=== PATIENT | female | born 2000 | race Caucasian/White ===

== ENCOUNTER → 2023-03-21 | Outpatient (CLI) | payer SELFPAY ==
[2023-03-30 17:13] LABS: HPV Reflexed? NOT INDICATED
== END | disposition home or self-care (01) ==
PROVIDERS: PCP Nurse Practitioner Family; Visit Provider Nurse Practitioner Family
DX: Z12.4 Encounter for screening for malignant neoplasm of cervix (principal)
CPT/HCPCS: 88175; G0145

== ENCOUNTER → 2025-07-01 | Outpatient (CLI) | payer SELFPAY, OTHER ==
--- NOTE | 2025-07-01 13:54 | BI_ITS ---
EXAM: DIAG MAMM W/CAD, BILAT 07/01/2025 CLINICAL HISTORY: F, Age 24 y/o, left upper outer quadrant breast pain. TECHNIQUE: Procedure Code: [id number] Modality: MG Procedure: DIAG MAMM W/CAD, BILAT. COMPARISON: Baseline study. FINDINGS: TISSUE DENSITY: The breasts are extremely dense, which lowers the sensitivity of mammography. Bilateral Breast Mammographic Findings: No significant masses, calcifications or other abnormalities are identified. Fullness in the axillary region of the left breast. Correlation with ultrasound recommended. BI/DIAG MAMM W/CAD, BILAT IMPRESSION: Fullness in the axillary region of the left breast. Correlation with targeted ultrasound recommended. OVERALL FINAL ASSESSMENT BI-RADS 0: INCOMPLETE - NEED ADDITIONAL IMAGING EVALUATION. RECOMMENDATION: Ultrasound Recommended A letter with findings and recommendations will be mailed to the patient. [id number]
--- NOTE | 2025-07-01 13:54 | US_ITS ---
PROCEDURE: BREAST LIMITED UNILATERAL 07/01/2025 REASON FOR EXAM: F, Age 24 y/o , PAIN Left axillary breast pain. COMPARISON: Prior mammogram done earlier in the day.. TECHNIQUE: Procedure Code: [id number] Modality: US Procedure: BREAST LIMITED UNILATERAL. The upper-outer quadrant of the left breast was examined with ultrasound. FINDINGS: There is a 2 cm x 1.2 cm x 0.6 cm hypoechoic nodule with a central fatty hilum suggestive of a lymph node at the 2 o'clock position of the breast at 6 cm from the nipple. There is also evidence of 2 benign-appearing lymph nodes in the left axilla the larger measures 2.3 cm 1.3 cm x 0.6 cm. US/Breast Limited Unilateral IMPRESSION: Findings suggestive of a benign-appearing left axillary lymph node as well as a lymph node at the 2 o'clock position of the breast at 6 cm from the nipple. BI-RADS 2: BENIGN RECOMMENDATION: Routine annual follow-up in 1 Year Reading Location: [place] [id number]
== END | disposition home or self-care (01) ==
PROVIDERS: PCP Family Medicine
DX: N64.4 Mastodynia (principal)
CPT/HCPCS: 76642; 77062; 77066; G0279

== ENCOUNTER → 2025-10-04 | Outpatient (CLI) | payer OTHER, SELFPAY ==
--- OUTSIDE RECORDS SUMMARY | 2025-10-04 09:19 | XMS RPT_ITS | CCD ---
Author Organization [facility] Care Team Providers Care Restaurant Cook Name Role Phone Noe Lawrence NP Referring Unavailable Noe Lawrence NP Attending Unavailable Francisco Moreno Primary Care Unavailable Noe Guardado Attending Physician Noe Guardado Referring Provider Tiffanie DOE, Dr. Francisco Slaughter Primary Care Physician Medications Current Medications Medication Drug Class(es) Dates Sig (Normalized) Sig (Original) amoxicillin 875 mg / clavulanate 125 mg oral tablet (2 sources) Penicillin-class Antibacterial Start: 02-09-2021 End: 11-06-2021 Problems Problem Classification Problem Date Documented Da te Episodic/Chronic Nonmalignant breast conditions (1 source) Mastodynia; Translations: [Mastodynia] Onset: 07-16-2025 Episodic Otitis media and related conditions (1 source) Otitis media of bilateral ears; Translations: [Otitis media, unspecified, bilateral] 11-06-2021 Episodic Results Test Name Value Interpretation Reference Range Facil ity Breast Limited Unilateralon 07-01-2025 Breast Limited Unilateral [facility] Services [address], [place] [id number] Breast Limited Unilateral MR#: [id number] Acct: [id number] Name: NICOLE ROSE Rep #: [id number] : 2000 F 24 From: Felix salmon MD PCP: Dr. Francisco Moreno MD Status: REG CLI Study: Breast Limited Unilateral Date of Exam: Exam# [id number] Ordering Dr: Noe Lawrence NP ASSESSMENT NURSE -C PROCEDURE: BREAST LIMITED UNILATERAL 07/01/2025 REASON FOR EXAM: F, Age 24 y/o , PAIN Left axillary breast pain. COMPARISON: Prior mammogram done earlier in the day.. TECHNIQUE: Procedure Code: USBRSTLIMIT Modality: US Procedure: BREAST LIMITED UNILATERAL. The upper-outer quadrant of the left breast was examined with ultrasound. FINDINGS: There is a 2 cm x 1.2 cm x 0.6 cm hypoechoic nodule with a central fatty hilum suggestive of a lymph node at the 2 o'clock position of the breast at 6 cm from the nipple. There is also evidence of 2 benign-appearing lymph nodes in the left axilla the larger measures 2.3 cm 1.3 cm x 0.6 cm. US/Breast Limited Unilateral IMPRESSION: Findings suggestive of a benign-appearing left axillary lymph node as well as a lymph node at the 2 o'clock position of the breast at 6 cm from the nipple. BI-RADS 2: BENIGN RECOMMENDATION: Routine annual follow-up in 1 Year Reading Location: [place] [address] CC: Noe Lawrence; Dr. Francisco Moreno MD Psychiatric Cns: Signed Normal [facility] Breast imaging reportOrdered By: Felix Robbins on 07-01-2025 Study report [facility] Imaging Services [address] [place] [id number] DIAG MAMM W/CAD, BILAT MR#: [id number] Acct: [id number] Name: NICOLE ROSE Rep #: [id number] : 2000 F 24 From: Carlos Robbins MD PCP: Dr. Francisco Moreno MD Status: RE G I Study:DIAG MAMM W/CAD, BILAT Date of Exam: 07/01/25 Exam# [id number] Ordering Dr: Noe Lawrence NP EXAM: DIAG MAMM W/CAD, BILAT 07/01/2025 CLINICAL HISTORY: F, Age 24 y/o, left upper outer quadrant breast pain. TECHNIQUE: Procedure Code: BIDMWCADB Modality: MG Procedure: DIAG MAMM W/CAD, BILAT. COMPARISON: Baseline study. FINDINGS: TISSUE DENSITY: The breasts are extremely dense, which lowers the sensitivity ofmammography. Bilateral Breast Mammographic Findings: No significant masses, calcifications or other abnormalities are identified. Fullness in the axillary region of the left breast. Correlation with ultrasound recommended. BI/DIAG MAMM W/CAD, BILAT IMPRESSION: Fullness in the axillary region of the left breast. Correlation with targeted ultrasound recommended. OVERALL FINAL ASSESSMENT BI-RADS 0: INCOMPLETE - NEED ADDITIONAL IMAGING EVALUATION. RECOMMENDATION: Ultrasound Recommended A letter with findings and recommendations will be mailed to the patient. [id number] CC: Noe Lawrence; Dr. Francisco Moreno MD ~ Psychiatric Cns: Signed [facility] DIAG MAMM W/CAD, BILATon DIAG MAMM W/CAD, BILAT [facility] Imaging Services [address] [place], [place] [id number] DIAG MAMM W/CAD, BILAT MR#: [id number] Acct: [id number] Name: NICOLE ROSE Rep #: [id number] : 2000 F 24 From: Felix salmon MD PCP: Dr. Francisco Moreno MD Status: [facility] Study: DIAG MAMM W/CAD, BILAT Date of Exam: 07/01/25 Exam# [id number] Ordering Dr: Noe Lawrence NP ASSESSMENT NURSE -C EXAM: DIAG MAMM W/CAD, BILAT 07/01/2025 CLINICAL HISTORY: F, Age 24 y/o, left upper outer quadrant breast pain. TECHNIQUE: Procedure Code: BIDMWCADB Modality: MG Procedure: DIAG MAMM W/CAD, BILAT. COMPARISON: Baseline study. FINDINGS: TISSUE DENSITY: The breasts are extremely dense, which lowers the sensitivity of mammography. Bilateral Breast Mammographic Findings: No significant masses, calcifications or other abnormalities are identified. Fullness in the axillary region of the left breast. Correlation with ultrasound recommended. BI/DIAG MAMM W/CAD, BILAT IMPRESSION: Fullness in the axillary region of the left breast. Correlation with targeted ultrasound recommended. OVERALL FINAL ASSESSMENT BI-RADS 0: INCOMPLETE - NEED ADDITIONAL IMAGING EVALUATION. RECOMMENDATION: Ultrasound Recommended A letter with findings and recommendations will be mailed to the patient. [id number] CC: Noe INGRAM McMorrow; Dr. Francisco Moreno MD Psychiatric Cns: Signed Normal [facility] CNOVon 09-22-2019 CN Office Visit (UCWSTR ) NICOLE HERBERT ([id number]) 2000 F Date Time Provider Department 09/22/19 10:15 AM ALLYSON MARIA [facility] During your visit today, we recorded the following information about you: Temperature Pulse Respiration Blood pressure 98.8 degrees 91/minute 18/minute 106/70 Weight 49.2 kg Allyson Maria APRN.HAND SCUDDER 09/22/2019 10:47 AM Signed Subjective HPI Nicole Herbert is a 19 year old female who presents with BL ear pain and cold symptoms for the last 3 days. The ears are equally painful. Mild headache this morning. She had a fever 3 days ago at 100 F. Review of Systems Constitutional: Positive for fever (resolved) and malaise/fatigue. Negative for chills. HENT: Positive for congestion and ear pain. Negative for sinus pain and sore throat. Respiratory: Positive for cough. Negative for sputum production, shortness of breath and wheezing. Cardiovascular: Negative for chest pain. Neurological: Positive for headaches. Negative for dizziness. BP 106/70 Pulse 91 Temp 37.1 ?C (98.8 ?F) (Tympanic) Resp 18 Wt 49.2 kg (108 lb 6.4 oz) SpO2 98% PAST MEDICAL HISTORY Diagnosis Date - Headache(784.0) 01/05/2013 - Mononucleosis PAST SURGICAL HISTORY Procedure Laterality Date - NONE ALLERGIES Patient has no known allergies. MEDICATIONS No prescriptions on file. FAMILY HISTORY Problem Relation Age of Onset - None Mother - None Father Social History Tobacco Use - Smoking status: Passive Smoke Exposure - Never Smoker - Smokeless tobacco: Never Used - Tobacco comment: dad smokes outside only Substance Use Topics - Alcohol use: Not on file - Drug use: Not on file Objective Physical Exam Constitutional: She is oriented to person, place, and time and well-developed, well-nourished, and in no distress. HENT: Head: Normocephalic and atraumatic. Right Ear: Tympanic membrane is bulging. Tympanic membrane is not erythematous. A middle ear effusion is present. Left Ear: Tympanic membrane is bulging. Tympanic membrane is not erythematous. A middle ear effusion is present. Nose: Rhinorrhea present. No mucosal edema. Right sinus exhibits no maxillary sinus tenderness and no frontal sinus tenderness. Left sinus exhibits no maxillary sinus tenderness and no frontal sinus tenderness. Mouth/Throat: No posterior oropharyngeal edema or posterior oropharyngeal erythema. Eyes: Conjunctivae are normal. Cardiovascular: Normal rate, regular rhythm, normal heart sounds and intact distal pulses. Exam reveals no gallop and no friction rub. No murmur heard. Pulmonary/Chest: Effort normal and breath sounds normal. No respiratory distress. She has no wheezes. She has no rales. She exhibits no tenderness. Musculoskeletal: General: No edema. Lymphadenopathy: She has no cervical adenopathy. Neurological: She is alert and oriented to person, place, and time. Gait normal. Skin: Skin is warm and dry. She is not diaphoretic. ASSESSMENT/PLAN: 1. Viral URI - ICD9: 465.9, ICD10: J06.9 (primary diagnosis) - Discussed viral etiology and rationale for treatment. - Symptomatic treatment with prn analgesia - Supportive care with fluids and rest 2. Eustachian tube dysfunction, bilateral - ICD9: 381.81, ICD10: H69.83 - PREDNISONE 20 MG TABLET - LORATADINE 10 MG TABLET Patient understands if he/she develops any shortness of breath, chest pain, or persistent fever, they should be taken to the ER immediately or call 911. All of the above discussed with the patient in detail. Patient is in agreement with the above plan. Treatment and plan of care discussed including course of treatment, possible medication side effects, and what to watch for in regards to worsening signs and symptoms. All questions addressed. Allyson Maria APRN.TORSTEN Referring Provider: SELF [200] Allergies As of Date: 09/22/2019 (No Known Allergies) Date Reviewed: 09/22/2019 Reviewed by: Allyson Maria - Fully Assessed Reason for Visit: Ear Pain [817] Cmt: bilateral ear pain, and cold sx x 3 days Primary Visit Diagnosis:Viral URI [J06.9] Other Visit Diagnosis:Eustachian tube dysfunction, bilateral [H69.83] Order(s):predniSONE (DELTASONE) 20 mg tabletTake 2 tablets by mouth once daily for 5 days. Take daily with food.Disp: 10 tabletRfl: 0 loratadine (CLARITIN) 10 mg tabletTake 1 tablet by mouth once daily.Disp: 30 tabletRfl: 0 Prescriptions as of 09/22/2019 Sig: PREDNISONE 20 MG TABLET Take 2 tablets by mouth once * LORATADINE 10 MG TABLET Take 1 tablet by mouth once d* Problem List As Of Date 09/22/2019 Noted Resolved Headache [R51] 01/05/2013 Prescriptions ordered this encounter Disp Refills Start End PREDNISONE 20 MG TABLET 10 t* 0 09/22/2019 09/27/2019 Route: ORAL Sig: Take 2 tablets by mouth once daily for 5 days. Take daily with food. LORATADINE 10 MG TABLET 30 t* 0 09/22/2019 Route: ORAL Sig: Take 1 tablet by mouth once daily. Encounter Status:Closed by APARNA RIVERA.ALLYSON SARMIENTO on 09/22/19 [facility] PROGRESSon 09-22-2019 PROGRESS HNO ID: [id number] Author: Allyson Maria Service: ? Author Type: Nurse Practitioner Type: Progress Notes Filed: 09/22/2019 10:47 AM Note Text: Subjective HPI Nicole Herbert is a 19 year old female who presents with BL ear pain and cold symptoms for the last 3 days. The ears are equally painful. Mild headache this morning. She had a fever 3 days ago at 100 F. Review of Systems Constitutional: Positive for fever (resolved) and malaise/fatigue. Negative for chills. HENT: Positive for congestion and ear pain. Negative for sinus pain and sore throat. Respiratory: Positive for cough. Negative for sputum production, shortness of breath and wheezing. Cardiovascular: Negative for chest pain. Neurological: Positive for headaches. Negative for dizziness. BP 106/70 Pulse 91 Temp 37.1 ?C (98.8 ?F) (Tympanic) Resp 18 Wt 49.2 kg (108 lb 6.4 oz) SpO2 98% PAST MEDICAL HISTORY Diagnosis Date - Headache(784.0) 01/05/2013 - Mononucleosis PAST SURGICAL HISTORY Procedure Laterality Date - NONE ALLERGIES Patient has no known allergies. MEDICATIONS No prescriptions on file. FAMILY HISTORY Problem Relation Age of Onset - None Mother - None Father Social History Tobacco Use - Smoking status: Passive Smoke Exposure - Never Smoker - Smokeless tobacco: Never Used - Tobacco comment: dad smokes outside only Substance Use Topics - Alcohol use: Not on file - Drug use: Not on file Objective Physical Exam Constitutional: She is oriented to person, place, and time and well-developed, well-nourished, and in no distress. HENT: Head: Normocephalic and atraumatic. Right Ear: Tympanic membrane is bulging. Tympanic membrane is not erythematous. A middle ear effusion is present. Left Ear: Tympanic membrane is bulging. Tympanic membrane is not erythematous. A middle ear effusion is present. Nose: Rhinorrhea present. No mucosal edema. Right sinus exhibits no maxillary sinus tenderness and no frontal sinus tenderness. Left sinus exhibits no maxillary sinus tenderness and no frontal sinus tenderness. Mouth/Throat: No posterior oropharyngeal edema or posterior oropharyngeal erythema. Eyes: Conjunctivae are normal. Cardiovascular: Normal rate, regular rhythm, normal heart sounds and intact distal pulses. Exam reveals no gallop and no friction rub. No murmur heard. Pulmonary/Chest: Effort normal and breath sounds normal. No respiratory distress. She has no wheezes. She has no rales. She exhibits no tenderness. Musculoskeletal: General: No edema. Lymphadenopathy: She has no cervical adenopathy. Neurological: She is alert and oriented to person, place, and time. Gait normal. Skin: Skin is warm and dry. She is not diaphoretic. ASSESSMENT/PLAN: 1. Viral URI - ICD9: 465.9, ICD10: J06.9 (primary diagnosis) - Discussed viral etiology and rationale for treatment. - Symptomatic treatment with prn analgesia - Supportive care with fluids and rest 2. Eustachian tube dysfunction, bilateral - ICD9: 381.81, ICD10: H69.83 - PREDNISONE 20 MG TABLET - LORATADINE 10 MG TABLET Patient understands if he/she develops any shortness of breath, chest pain, or persistent fever, they should be taken to the ER immediately or call 911. All of the above discussed with the patient in detail. Patient is in agreement with the above plan. Treatment and plan of care discussed including course of treatment, possible medication side effects, and what to watch for in regards to worsening signs and symptoms. All questions addressed. Allyson Maria APRN.TORSTEN [facility] CNOVon 01-19-2019 CNOV Office Visit (UCWSTR ) NICOLE HERBERT ([id number]) 2000 F Date Time Provider Department 01/19/19 10:00 AM CONNIE VASQUEZ [facility] During your visit today, we recorded the following information about you: Temperature Pulse Respiration Blood pressure 98.3 degrees 78/minute 12/minute 100/58 Weight 52.5 kg Connie Vasquez APRN.TORSTEN 01/19/2019 12:01 PM Signed Subjective HPI Pt accompanied by mother. Pt presents with c/o dysuria and suprapubic pressure x 2 days. This am had mild bilateral low back pain. Has not taken any OTC medications. Does not think she is drinking enough water. Denies fever, chills, myalgias, vaginal discharge, urinary urgency/frequency. Review of Systems Constitutional: Negative for chills and fever. Gastrointestinal: Negative for abdominal pain, constipation, diarrhea, nausea and vomiting. Genitourinary: Positive for dysuria. Negative for flank pain, frequency, hematuria and urgency. Musculoskeletal: Negative for back pain and myalgias. Objective Physical Exam Constitutional: She is oriented to person, place, and time and well-developed, well-nourished, and in no distress. No distress. Abdominal: There is no CVA tenderness. Neurological: She is alert and oriented to person, place, and time. Skin: Skin is warm and dry. She is not diaphoretic. BP 100/58 Pulse 78 Temp 36.8 ?C (98.3 ?F) (Tympanic) Resp 12 Wt 52.5 kg (115 lb 12.8 oz) .Patient presents with: UTI: burning with urination,frequency and low back pain x 2 days PAST MEDICAL HISTORY Diagnosis Date - Headache(784.0) 01/05/2013 - Mononucleosis PAST SURGICAL HISTORY Procedure Laterality Date - NONE ALLERGIES Patient has no known allergies. MEDICATIONS phenazopyridine (PYRIDIUM) 100 mg tablet Take 1 tablet by mouth three times daily as needed for up to 2 days. FAMILY HISTORY Problem Relation Age of Onset - None Mother - None Father Social History Tobacco Use - Smoking status: Passive Smoke Exposure - Never Smoker - Smokeless tobacco: Never Used - Tobacco comment: dad smokes outside only Substance Use Topics - Alcohol use: Not on file - Drug use: Not on file ASSESSMENT/PLAN: 1. Dysuria - ICD9: 788.1, ICD10: R30.0 acute - UA WNL - Send urine for culture - Patient education for prevention given - UA DIP, URINE (POC) - URINE CULTURE - PHENAZOPYRIDINE 100 MG TABLET Encouraged to drink plenty of fluids. Will call with urine culture result and any further POC. The patient is instructed to return or seek emergency treatment if symptoms become worse or with any acute change in condition. The patient verbalizes understanding and is in agreement with plan of care. Connie Vasquez CNP Referring Provider: SELF [200] Allergies As of Date: 01/19/2019 (No Known Allergies) Date Reviewed: 01/19/2019 Reviewed by: Vera Pizarro Cylinder Press Feeder - Fully Assessed Reason for Visit: UTI [116] Cmt: burning with urination,frequency and low back pain x 2 days Primary Visit Diagnosis:Dysuria [R30.0] Order(s):UA DIP, URINE (POC) [2424016] Order #: [id number] #[id number] URINE CULTURE [SQURCUL] Order #: [id number] phenazopyridine (PYRIDIUM) 100 mg tabletTake 1 tablet by mouth three times daily as needed for up to 2 days.Disp: 6 tabletRfl: 0 Prescriptions as of 01/19/2019 Sig: PHENAZOPYRIDINE 100 MG TABLET Take 1 tablet by mouth three * Problem List As Of Date 01/19/2019 Noted Resolved Headache [R51] INVALID FOR* Prescriptions ordered this encounter Disp Refills Start End PHENAZOPYRIDINE 100 MG TABLET 6 ta* 0 01/19/2019 01/21/2019 Route: ORAL Sig: Take 1 tablet by mouth three times daily as needed for up to 2 days. Encounter Status:Closed by CONNIE VASQUEZ CNP on 01/19/19 Normal [facility] PROGRESSon 01-19-2019 PROGRESS HNO ID: [id number] Author: Connie Vasquez Service: ? Author Type: Nurse Practitioner Type: Progress Notes Filed: 01/19/2019 12:01 PM Note Text: Subjective HPI Pt accompanied by mother. Pt presents with c/o dysuria and suprapubic pressure x 2 days. This am had mild bilateral low back pain. Has not taken any OTC medications. Does not think she is drinking enough water. Denies fever, chills, myalgias, vaginal discharge, urinary urgency/frequency. Review of Systems Constitutional: Negative for chills and fever. Gastrointestinal: Negative for abdominal pain, constipation, diarrhea, nausea and vomiting. Genitourinary: Positive for dysuria. Negative for flank pain, frequency, hematuria and urgency. Musculoskeletal: Negative for back pain and myalgias. Objective Physical Exam Constitutional: She is oriented to person, place, and time and well-developed, well-nourished, and in no distress. No distress. Abdominal: There is no CVA tenderness. Neurological: She is alert and oriented to person, place, and time. Skin: Skin is warm and dry. She is not diaphoretic. BP 100/58 Pulse 78 Temp 36.8 ?C (98.3 ?F) (Tympanic) Resp 12 Wt 52.5 kg (115 lb 12.8 oz) .Patient presents with: UTI: burning with urination,frequency and low back pain x 2 days PAST MEDICAL HISTORY Diagnosis Date - Headache(784.0) 01/05/2013 - Mononucleosis PAST SURGICAL HISTORY Procedure Laterality Date - NONE ALLERGIES Patient has no known allergies. MEDICATIONS phenazopyridine (PYRIDIUM) 100 mg tablet Take 1 tablet by mouth three times daily as needed for up to 2 days. FAMILY HISTORY Problem Relation Age of Onset - None Mother - None Father Social History Tobacco Use - Smoking status: Passive Smoke Exposure - Never Smoker - Smokeless tobacco: Never Used - Tobacco comment: dad smokes outside only Substance Use Topics - Alcohol use: Not on file - Drug use: Not on file ASSESSMENT/PLAN: 1. Dysuria - ICD9: 788.1, ICD10: R30.0 acute - UA WNL - Send urine for culture - Patient education for prevention given - UA DIP, URINE (POC) - URINE CULTURE - PHENAZOPYRIDINE 100 MG TABLET Encouraged to drink plenty of fluids. Will call with urine culture result and any further POC. The patient is instructed to return or seek emergency treatment if symptoms become worse or with any acute change in condition. The patient verbalizes understanding and is in agreement with plan of care. Connie Vasquez CNP Normal [facility] Urine Cultureon 01-19-2019 Bacteria identified Cx Nom (U) Sp. Request/Comment: - Specimen received in preservative Culture Result - <10,000 CFU/ml Normal urogenital misha Normal [facility] Comment on above: Performed By: #### U RCUL #### [facility] [address] [place] [address] Encounters Encounter Date Encounter Type Care Provider Facility Start: 07-01-2025 End: 07-01-2025 ambulatory Noe Lawrence ASSESSMENT NURSE-C Work Phone: -Outpatient Breast Imaging Start: 07-01-2025 End: 07-01-2025 Patient encounter procedure Noe Lawrence NP-[facility] -[facility] Work Phone: Start: 07-01-2025 End: 07-01-2025 ambulatory Noe Lawrence ASSESSMENT NURSE Facility:[facility] Procedures Date Procedure Procedure Detail Performing Clinician Start: 07-01-2025 Bilateral mammography A lucero Lawrence ASSESSMENT NURSE-C Work Phone: Start: 07-01-2025 Ultrasonography of breast Noe Lawrence NP-C Work Phone: Payers Date Payer Category Payer Self-pay 2025 Unknown 2025 Unknown [id number] Unknown [id number] Social History Date Type Detail Facility Start: [facility]06-[facility]21 [facility] Sex Female [facility] Start: 2000 Sex Assigned At Female [facility] Radiology Diagnostic study note 07-02-2025 Note Date & Type Note Facility 07-02-2025 Radiology Diagnostic study note [facility] Imaging Services [address] [place] [address] Breast Limited Unilateral MR#: [id number] Acct: [id number] Name: NICOLE ROSE Rep #: [id number] : 2000 F 24 From: Carlos Robbins MD PCP: Dr. Francisco Moreno MD Status: RE G CLI Study:Breast Limited Unilateral Date of Exam: 07/01/25 Exam# [id number] Ordering Dr: Noe Lawrence NP PROCEDURE: BREAST LIMITED UNILATERAL 07/01/2025 REASON FOR EXAM: F, Age 24 y/o , PAIN Left axillary breast pain. COMPARISON: Prior mammogram done earlier in the day.. TECHNIQUE: Procedure Code: USBRSTLIMIT Modality: US Procedure: BREAST LIMITED UNILATERAL. The upper-outer quadrant of the left breast was examined with ultrasound. FINDINGS: There is a 2 cm x 1.2 cm x 0.6 cm hypoechoic nodule with a central fatty hilum suggestive of a lymph node at the 2 o'clock position of the breast at 6 cm from the nipple. There is also evidence of 2 benign-appearing lymph nodes in the left axilla the larger measures 2.3 cm 1.3 cm x 0.6 cm. US/Breast Limited Unilateral IMPRESSION: Findings suggestive of a benign-appearing left axillary lymph node as well as a lymph node at the 2 o'clock position of the breast at 6 cm from the nipple. BI-RADS 2: BENIGN RECOMMENDATION: Routine annual follow-up in 1 Year Reading Location: [facility] CC: Noe Lawrence; Dr. Francisco Moreno MD ~ Psychiatric Cns: Signed [facility] Evaluation note Note Date & Type Note Facility Evaluation note No assessment information availa ble [facility] Work Phone: Reason for referral (narrative) Note Date & Type Note Facility Reason for referral (narrative) No reason for referral information available [facility] Work Phone: Summary Purpose Family History No Family History Records FoundNo Family History Records Found Advance Directives No Advanced Directives Records FoundNo Advanced Directives Records Found Chief Complaint and Reason for Visit Chief Complaint Admit Date BREAST PAIN, LT July 01, 2025 1:48pm Additional Source Comments INFORMATION SOURCE (unrecogn ized section and content) DATE CREATED AUTHOR 09/22/2019 [facility] DATE CREATED AUTHOR AUTHOR'S ORGANIZ ATION 07/18/2025 [facility] Care Teams (unrecognized sec tion and content) Team Status: Active Member Role/Relationship Status Dates Dr. Francisco Moreno MD Primary care physician Active Team Status: Inactive Member Role/Relationship Status Dates Noe Lawrence ASSESSMENT NURSE ASSESSMENT NURSE-C Attending physician Active Start: July 01, 2025 End: July 01, 2025 Noe Lawrence ASSESSMENT NURSE ASSESSMENT NURSE-C Referring Provider Active Start: July 01, 2025 End: July 01, 2025 Dr. Francisco Moreno MD Primary care physician Active Start: July 01, 2025 End: July 01, 2025 Goals (unrecognized section and content) Goals may be documented in a n alternate section FOR RECORDS PERTAINING TO PATIENTS WHO ARE OR HAVE BEEN ENROLLED IN A CHEMICAL DEPENDENCY/SUBSTANCEABUSE PROGRAM, SOME INFORMATION MAY BE OMITTED. This clinical summary was aggregated from multiple sources. Caution should be exercised in using it in the provision of clinical care. This summary normalizes information from multiple sources, and as a consequence, information in this document may materially change the coding, format and clinical context of patient data. In addition, data may be omitted in some cases. CLINICAL DECISIONS SHOULD BE BASED ON THE PRIMARY CLINICAL RECORDS. [employer] provides no warranty or guarantee of the accuracy or completeness of information in this document.
[2025-10-04 12:36] LABS: Hematocrit 42.2 % (37-47); Hemoglobin 14.0 g/dL (12.0-15.0); Immature Granulocytes Count 0.000 X10^3/uL (0.0-0.0); Mean Corp Hgb Conc 33.2 g/dL (32-36); Mean Corpuscular Volume 94.4 fL (81-99); Mean Platelet Vol. 10.4 fl (6.2-12.0); NRBC Flagged by Analyzer 0 % (0-5); Platelet Count 323 K/mm3 (150-450); RBC Distribution Width CV 12.4 % (11.6-14.6); RBC Distribution Width SD 43.2 fl (35.1-43.9); Red Blood Count 4.47 M/mm3 (4.2-5.4); White Blood Count 4.3 K/mm3 (4.4-11.0)
[2025-10-04 13:07] LABS: AST(SGOT) 24 U/L (<=31); Alanine Aminotransfer ALT/SGPT 23 U/L (<=34); Albumin, Serum 4.8 g/dL (3.5-5.0); Alkaline Phosphatase 42 U/L (35-104); Anion Gap 12 (5-15); BUN 10 mg/dL (4-19); BUN/Creat Ratio 16.3 RATIO (10-20); Calcium,Total 10.1 mg/dL (7.6-11.0); Carbon Dioxide 23.8 mmol/L (21.0-32.0); Chloride 103 mmol/L (98-108); Globulin 3.3 g/dL (2.2-4.2); Glucose 71 mg/dL (70-99); Potassium 3.9 mmol/L (3.3-5.1)
== END | disposition home or self-care (01) ==
PROVIDERS: PCP Family Medicine; Visit Provider Nurse Practitioner Family
DX: Z31.69 Encounter for other general counseling and advice on procreation (principal); Z13.29 Encounter for screening for other suspected endocrine disorder; N92.6 Irregular menstruation, unspecified
CPT/HCPCS: 36415; 80053; 84439; 84443; 85025

== ENCOUNTER → 2025-10-14 | Outpatient (CLI) | payer SELFPAY, OTHER ==
--- NOTE | 2025-10-14 16:11 | US_ITS ---
PROCEDURE: PELVIC W/ TRANSVAGINAL REASON FOR EXAM: INFERTILITY X 4 YEARS TECHNIQUE: Procedure Code: [id number] Modality: US Procedure: PELVIC W/ TRANSVAGINAL COMPARISON: None FINDINGS: LMP: October 03, 2025 Measurements: Uterus: 7.3 cm x 5 cm x 2.9 cm with a volume of 55.2 mL Endometrial Thickness: 5 mm. It is trilaminar. Right Ovary: 5.1 cm x 2.4 cm x 2.2 cm with a volume of 18.2 mL. Left Ovary: 2.7 cm x 2.1 cm x 1.6 cm with a volume of 11.9 mL. TRANSABDOMINAL: Uterus: Normal size, myometrial echotexture, and contour. Endometrium: Unremarkable. Right ovary: Multiple small follicles in the periphery of the right ovary. Left ovary: Multiple small follicles in the periphery of the left ovary. Other: No large pelvic mass identified. Transvaginal sonography was performed to better visualize the endometrium. TRANSVAGINAL: Uterus: Anteverted. Arcuate uterus. Endometrium: Normal echotexture. Right ovary: Normal size and echotexture. Left ovary: Normal size and echotexture. Other adnexal findings: None. Cul-de-sac: No free intraperitoneal fluid identified. Tenderness: No tenderness US/Pelvic w/ Transvaginal IMPRESSION: Multiple small follicles in the periphery of both ovaries. PCOS should be cons idered. Reading Location: [id number]
== END | disposition home or self-care (01) ==
LOC: US 16:09
PROVIDERS: PCP Family Medicine; Referring Provider Nurse Practitioner Family; Visit Provider Nurse Practitioner Family
DX: N92.6 Irregular menstruation, unspecified (principal)
CPT/HCPCS: 76830; 76856

== ENCOUNTER → 2025-10-22 | Outpatient (CLI) | payer OTHER, SELFPAY ==
--- OUTSIDE RECORDS SUMMARY | 2025-10-22 06:28 | XMS RPT_ITS | CCD ---
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 Francisco Moreno MD Status: REG CLI Study: Breast Limited Unilateral Date of Exam: Exam# [id number] Ordering Dr: Noe Lawrence NP [employer] -C PROCEDURE: BREAST LIMITED UNILATERAL 07/01/2025 REASON [...] annual follow-up in 1 Year Reading Location: [place] [address] CC: Noe Lawrence; Dr. Francisco Moreno MD Table Worker: Signed Normal [facility] Breast imaging reportOrdered By: Felix Robbins on 07-01-2025 Study report [facility] Imaging Services [address] [place] [address] DIAG MAMM W/CAD, BILAT MR#: [id number] Acct: [id number] Name: NICOLE ROSE Rep #: [id number] : 2000 F 24 From: Carlos Robbins MD PCP: Dr. Francisco Moreno MD Status: RE G I Study:DIAG MAMM W/CAD, BILAT Date of Exam: 07/01/25 Exam# [id number] Ordering Dr: Noe Lawrence NP EXAM: DIAG [...] be mailed to the patient. Reading [id number] CC: Noe Lawrence; Dr. Francisco Moreno MD ~ Table Worker: Signed [facility] DIAG MAMM W/CAD, BILATon DIAG MAMM W/CAD, BILAT [facility] Imaging Services [address] [place], [place] [id number] DIAG MAMM W/CAD, BILAT MR#: [id number] Acct: [id number] Name: NICOLE ROSE Rep #: [id number] : 2000 F 24 From: Felix salmon MD PCP: Dr. Francisco Moreno MD Status: [facility] Study: DIAG MAMM W/CAD, BILAT Date of Exam: 07/01/25 Exam# [id number] Ordering Dr: Noe Lawrence NP [employer] -C EXAM: DIAG MAMM W/CAD, BILAT 07/01/2025 [...] be mailed to the patient. Reading [id number] CC: Noe INGRAM McMorrow; Dr. Francisco Moreno MD Table Worker: Signed Normal [facility] CNOVon 09-22-2019 CN Office Visit (UCWSTR ) NICOLE HERBERT ([id number]) 2000 F Date Time Provider Department 09/22/19 10:15 AM ALLYSON MARIA [facility] During your visit today, we recorded the following information about you: Temperature Pulse Respiration Blood pressure 98.8 degrees 91/minute 18/minute 106/70 Weight 49.2 kg Allyson Maria APRN.ACOUSTICS TEACHER 09/22/2019 10:47 AM Signed Subjective HPI Nicole [...] Status:Closed by APARNA RIVERA.ALLYSON SARMIENTO on 09/22/19 [facility] PROGRESSon 09-22-2019 PROGRESS HNO ID: [id number] Author: Allyson Maria Service: ? Author Type: [...] All questions addressed. 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 #:[id number] URINE CULTURE [SQURCUL] Order #: [id number] phenazopyridine (PYRIDIUM) 100 mg tabletTake 1 tablet [...] by CONNIE VASQUEZ CNP on 01/19/19 Normal [facility] PROGRESSon 01-19-2019 PROGRESS HNO ID: [id number] Author: Connie Vasquez Service: ? Author Type: [...] plan of care. Connie Vasquez CNP Normal [facility] Urine Cultureon 01-19-2019 Bacteria identified Cx Nom (U) Sp. Request/Comment: - Specimen received in preservative Culture Result - <10,000 CFU/ml Normal urogenital misha Normal [facility] Comment on above: Performed By: #### U RCUL #### [facility] [address] [place] [address] Encounters Encounter Date Encounter Type Care Provider Facility Start: 07-01-2025 End: 07-01-2025 ambulatory Noe Lawrence [employer] AG[employer]-C Work Phone: -Outpatient Breast Imaging Start: 07-01-2025 End: 07-01-2025 Patient encounter procedure Noe Lawrence NP-[facility] -Outpatient Breast Imaging Work Phone: Start: 07-01-2025 End: 07-01-2025 ambulatory Noe Lawrence CIA AGENT Facility:[facility] Procedures Date Procedure Procedure Detail Performing Clinician Start: 07-01-2025 Bilateral mammography A lucero Lawrence [employer] AG[employer]-C Work Phone: Start: 07-01-2025 Ultrasonography of breast Noe Lawrence NP-C Work Phone: Payers Date Payer Category Payer Self-pay 2025 Unknown 2025 Unknown [id number] Unknown [id number] Social History Date Type Detail Facility Start: [facility]06[facility]21 [facility] Sex Female [facility] Start: 2000 Sex Assigned At Female W [facility] Radiology Diagnostic study note 07-02-2025 Note Date & Type Note Facility 07-02-2025 Radiology Diagnostic study note [facility] Imaging Services [address] [place] [address] Breast Limited Unilateral MR#: [id number] Acct: [id number] Name: NICOLE ROSE Rep #: [id number] : 2000 F 24 From: Carlos Robbins MD PCP: Dr. Francisco Moreno MD Status: RE G CLI Study:Breast Limited Unilateral Date of Exam: 07/01/25 Exam# [id number] Ordering Dr: Noe Lawrence NP PROCEDURE: BREAST [...] annual follow-up in 1 Year Reading Location: [facility] CC: Noe Lawrence; Dr. Francisco Moreno MD ~ Table Worker: Signed [facility] Evaluation note Note Date & Type Note Facility Evaluation note No assessment information availa ble [facility] Work Phone: Reason for referral (narrative) Note Date & Type Note Facility Reason for referral (narrative) No reason for referral information available [facility] Work Phone: Summary Purpose Family History No Family History Records FoundNo Family History Records Found Advance Directives No Advanced Directives Records FoundNo Advanced Directives Records Found Chief Complaint and Reason for Visit Chief Complaint Admit Date BREAST PAIN, LT July 01, 2025 1:48pm Additional Source Comments INFORMATION SOURCE (unrecogn ized section and content) DATE CREATED AUTHOR 09/22/2019 [facility] DATE CREATED AUTHOR AUTHOR'S ORGANIZ ATION 07/18/2025 [facility] Care Teams (unrecognized sec tion and content) Team Status: Active Member Role/Relationship Status Dates Dr. Francisco Moreno MD Primary care physician Active Team Status: Inactive Member Role/Relationship Status Dates Noe Lawrence CIA AGENT [employer] AG[employer]-C Attending physician Active Start: July 01, 2025 End: July 01, 2025 Noe Lawrence CIA AGENT CIA AGENT-C Referring Provider Active Start: July 01, 2025 [...] BE BASED ON THE PRIMARY CLINICAL RECORDS. [employer] provides no warranty or guarantee of the accuracy or completeness of information in this document.
[2025-10-22 07:58] LABS: Cholesterol 191 mg/dL (<=200); Low Density Lipoprotein Calc. 123 mg/dL; Triglycerides 57 mg/dL; Very Low Density Lipoprotein 11 mg/dL (5-40); cholesterol:hdl ratio screen 3.31
[2025-10-23 08:07] LABS: PROGESTERONE 10.2 ng/mL (.)
== END | disposition home or self-care (01) ==
LOC: LAB 06:26
PROVIDERS: PCP Family Medicine; Referring Provider Nurse Practitioner Family; Visit Provider Nurse Practitioner Family
DX: Z13.220 Encounter for screening for lipoid disorders (principal); Z31.69 Encounter for other general counseling and advice on procreation
CPT/HCPCS: 36415; 80061; 84144